=== PATIENT | female | born 1935 | race Caucasian/White ===

== ENCOUNTER 2017-06-08 17:51 | Emergency (ER) | payer MEDICAID ==
[~2017-06-08] VITALS: Ht 160 cm; Wt 99.8 kg
[~2017-06-08 17:51] MED LIST: ASPIRIN EC81 MG ORAL; LISINOPRIL5 MG ORAL; XARELTO15 MG ORAL
[2017-06-08 18:25] VITALS: BP 164/77
--- NOTE | 2017-06-08 18:25 | Emergency Room Report ---
History of Present Illness General Chief Complaint: Upper Respiratory Illness Source: Patient (Yao Andersen) Present Illness HPI 81 yo female patient presents to ER complaining of cough x2 weeks. Reports chest and back pain following cough. Reports chest and back is reproducible. Reports hx of HTN, was recently taken off medication, was told because "she didn 't need it anymore"; was taking Lisinopril 20mg. Reports still has medication. Denies vision changes, MANN, abdominal pain, fever. Denies hx of TX or heart surgery. Reports hx of DVT 2 years ago. Denies SOB, hemoptysis. Reports phlegm in cough. Denies calf or neck pain acutely. Reports taking Theraflu and Tylenol for relief of symptoms. Denies hx of asthma. (Yao Andersen) Allergies: Coded Allergies: NO KNOWN ALLERGIES (Unverified Allergy, Unknown, 03/27/15) Patient History Past Medical History: see triage record Last Menstrual Period: na Reviewed Nursing Documentation: PMH: Agreed, PSxH: Agreed (Yao Andersen) Nursing Documentation-PMH Past Medical History: No History, Except For Hx Hypertension: Yes Hx Diabetes: No Hx Cancer: No Hx Gastrointestinal Problems: No Hx Dizziness: Yes Hx Headaches: No (Yao Andersen) Review of Systems All Other Systems: negative except mentioned in HPI (Yao Andersen) Physical Exam Vital Signs Date Time Temp Pulse Resp B/P (MAP) Pulse Ox O2 Delivery O2 Flow Rate FiO2 18 18:00 97.8 73 20 194/75 94 Room Air 97.9 Sp02 EP Interpretation: reviewed, normal General Appearance: well appearing, no apparent distress, alert, GCS 15, non- toxic Head: normocephalic, atraumatic Eyes: bilateral eye normal inspection, bilateral eye PERRL ENT: hearing grossly normal, normal pharynx, no angioedema, normal voice, uvula midline, moist mucus membranes Neck: full range of motion, no bony tend Respiratory: lungs clear, normal breath sounds, no rhonchi, no respiratory distress, no accessory muscle use, no wheezing, speaking full sentences Cardiovascular #1: regular rate, rhythm, no edema Cardiovascular #2: 2+ radial (R), 2+ radial (L) Gastrointestinal: non tender, soft, no mass, non-distended, no guarding, no rebound Genitourinary: no CVA tenderness Musculoskeletal: back normal, digits/nails normal, gait/station normal, normal range of motion, non-tender, no calf tenderness, Luh's Sign negative Neurologic: alert, oriented x3, responsive, motor strength/tone normal, sensory intact Psychiatric: mood/affect normal Skin: no rash Lymphatic: no adenopathy (Yao Andersen) Medical Decision Making PA Attestation Dr. Guy is my supervising Physician whom patient management has been discussed with. (Yao Andersen) Diagnostic Impression: Primary Impression: Cough Additional Impressions: Blood glucose elevated Hypertension Qualified Codes: I10 - Essential (primary) hypertension ER Course Pt presents to ED c/o cough. DDX considered but are not limited to influenza, viral URI, pneumonia, strep throat, rhinitis, sinusitis, otitis media, TX. Low suspicion for PE per Well's criteria, no Cancer, no immobilization, no hemoptysis, no leg swelling. VITAL SIGNS are WNL, patient is afebrile. Blood pressure elevated at triage, repeat measurement. On PE, lungs clear to auscultation. Chest and back pain is reproducible with cough symptoms. Chest pain likely musculoskeletal in nature secondary to cough, will perform cardiac workup at this time to rule out underlying pathology. Patient instructed to take NSAIDs as needed for pain symptoms. Ordered labs, EKG ,and Chest X-ray. ER COURSE: EKG negative for ST elevation or arrhythmia. CXR negative for acute disease. Reviewed by Dr. Guy. Labs unremarkabkle, no elevation in WBC. Blood glucose elevated, followup with primary care provider for further diagnosis and treatment Troponin negative. Labs consistent with previous visit in ER. Contact primary care provider tomorrow regarding elevated blood pressure and need to begin taking Lisinopril again. Discuss elevated blood glucose. Pain likely musculoskeletal in nature. Take Tylenol for pain symptoms. Patient stable for discharge to home and outpatient followup. Patient smiling and laughing, talking without difficulty. Blood pressure reading decreased since arrival to ER. Followup with PCP. DISCHARGE: At this time pt is stable for d/c to home. Patient is resting comfortably, in no acute distress, nontoxic appearing, laughing and smiling, talking without difficulty. Patient able to ambulate independently without difficult.y. -Rx given for Tylenol/Acetaminophen -Rx given for Promethazine with codeine for cough. Use at night to help sleep. SE constipation. Patient to take medications as instructed Will provide with patient care instructions and any necessary prescriptions. Care plan and follow-up instructions provided. Patient instructed to follow-up with primary care provider in 3 - 5 days. Patient questions asked and answered. Patient reports understanding and agreement to treatment plan. ER precautions given. Patient instructed to return to ER immediately for any new or worsening of symptoms including but not limited to increasing SOB, persistent fever, chest pain, intractable vomiting. Labs Test 06/08/17 18:40 White Blood Count 5.2 K/UL (4.8-10.8) Red Blood Count 4.18 M/UL (4.20-5.40) Hemoglobin 12.6 G/DL (12.0-16.0) Hematocrit 38.5 % (37.0-47.0) Mean Corpuscular Volume 92 FL (80-99) Mean Corpuscular Hemoglobin 30.1 PG (27.0-31.0) Mean Corpuscular Hemoglobin Concent 32.7 G/DL (32.0-36.0) Red Cell Distribution Width 12.9 % (11.6-14.8) Platelet Count 238 K/UL (150-450) Mean Platelet Volume 6.6 FL (6.5-10.1) Neutrophils (%) (Auto) 46.6 % (45.0-75.0) Lymphocytes (%) (Auto) 41.8 % (20.0-45.0) Monocytes (%) (Auto) 10.2 % (1.0-10.0) Eosinophils (%) (Auto) 1.2 % (0.0-3.0) Basophils (%) (Auto) 0.2 % (0.0-2.0) Sodium Level 140 MMOL/L (136-145) Potassium Level 4.1 MMOL/L (3.5-5.1) Chloride Level 103 MMOL/L (98-107) Carbon Dioxide Level 27 MMOL/L (21-32) Anion Gap 10 mmol/L (5-15) Blood Urea Nitrogen 19 mg/dL (7-18) Creatinine 1.2 MG/DL (0.55-1.30) Estimat Glomerular Filtration Rate mL/min (>60) Glucose Level 126 MG/DL (74-106) Calcium Level 8.4 MG/DL (8.5-10.1) Total Bilirubin 0.3 MG/DL (0.2-1.0) Aspartate Amino Transf (AST/SGOT) 17 U/L (15-37) Alanine Aminotransferase (ALT/SGPT) 19 U/L (12-78) Alkaline Phosphatase 123 U/L (46-116) Total Creatine Kinase 29 U/L (26-308) Creatine Kinase MB 0.5 NG/ML (0.0-3.6) Creatine Kinase MB Relative Index 1.7 Troponin I 0.000 ng/mL (0.000-0.056) Total Protein 7.5 G/DL (6.4-8.2) Albumin 3.5 G/DL (3.4-5.0) Globulin 4.0 g/dL Albumin/Globulin Ratio 0.9 (1.0-2.7) (Yao Andersen P.A.) ER Course I was involved in this patient's evaluation and agree with the assessment and treatment plan. (Asa Guy M.D.) EKG Diagnostic Results Rate: normal Rhythm: NSR ST Segments: no acute changes ASA given to the pt in ED: No PA Scribe Text Ulices Andersen PA-C (Yao Andersen P.A.) Rhythm Strip Diag. Results EP Interpretation: yes Rate: 68 Rhythm: NSR, no PVC's, no ectopy PA Scribe Text Ulices Andersen PA-C (Yao Andersen P.A.) Chest X-Ray Diagnostic Results Chest X-Ray Diagnostic Results : Chest X-Ray Ordered: Yes # of Views/Limited/Complete: 1 View Indication: Chest Pain EP Interpretation: Yes PA Xray: Interpretation reviewed, by supervising MD, and agrees with findings. Interpretation: no consolidation, no effusion, no pneumothorax, no acute cardiopulmonary disease Impression: No acute disease PA Scribe Text Ulices Andersen PA-C (Yao Andersen P.A.) Chest X-Ray Diagnostic Results : Electronically Signed by: Scribe documentation reviewed by me and is accurate, Asa Guy MD. (Asa Guy M.D.) Last Vital Signs Date Time Temp Pulse Resp B/P (MAP) Pulse Ox O2 Delivery O2 Flow Rate FiO2 06/08/17 18:00 97.8 73 20 194/75 94 Room Air 97.9 (Yao Andersen) Last Vital Signs Date Time Temp Pulse Resp B/P (MAP) Pulse Ox O2 Delivery O2 Flow Rate FiO2 06/08/17 20:45 97.8 88 19 165/78 98 Room Air 97.8 (Asa Guy M.D.) Disposition: HOME, SELF-CARE Condition: Stable Scripts Codeine/Promethazine Hcl* (PROMETHAZINE-CODEINE SYRUP*) 118 Ml Syrup 5 ML ORAL Q6H Y for For Cough for 5 Days, #118 ML 0 Refills Prov: Yao Andersen 06/08/17 Acetaminophen* (TYLENOL EXTRA STRENGTH*) 500 Mg Tablet 500 MG ORAL Q8H Y for Prn Headache/Temp > 101, #30 TAB 0 Refills Prov: Yao Andersen 06/08/17 Patient Instructions: Hypertension, [id number], Managing Your High Blood Pressure, Upper Respiratory Infection, Adult Additional Instructions: Followup with primary care provider in 3 -5 days. Call physician tomorrow to discuss hypertension medication use. Discuss elevated blood glucose level in ER. Take cough medication at night to help sleep. May cause constipation, drink prune juice to help prevent constipation symptoms. Take medications as directed. Patient questions asked and answered. ER precautions given, patient instructed to return to ER immediately for any new or worsening of symptoms. Yao Andersen Jun 08, 2017 18:25 Asa Guy M.D. Jun 09, 2017 07:47
[2017-06-08 19:14] LABS: BASOPHILS % (AUTO) 0.2 % (0.0-2.0); EOSINOPHILS % (AUTO) 1.2 % (0.0-3.0); HEMATOCRIT 38.5 % (37.0-47.0); HEMOGLOBIN 12.6 G/DL (12.0-16.0); LYMPHOCYTES % (AUTO) 41.8 % (20.0-45.0); MEAN CORPUSCULAR VOLUME 92 FL (80-99); MONOCYTES % (AUTO) 10.2 % (1.0-10.0); NEUTROPHILS % (AUTO) 46.6 % (45.0-75.0); PLATELET COUNT 238 K/UL (150-450); RED BLOOD COUNT 4.18 M/UL (4.20-5.40); RED CELL DISTRIBUTION WIDTH 12.9 % (11.6-14.8); WHITE BLOOD COUNT 5.2 K/UL (4.8-10.8)
[2017-06-08 20:03] LABS: ANION GAP 10 mmol/L (5-15); BLOOD UREA NITROGEN 19 mg/dL (7-18); CALCIUM 8.4 MG/DL (8.5-10.1); CARBON DIOXIDE 27 MMOL/L (21-32); CHLORIDE 103 MMOL/L (98-107); CREATININE 1.2 MG/DL (0.55-1.30); POTASSIUM 4.1 MMOL/L (3.5-5.1); SODIUM 140 MMOL/L (136-145)
[2017-06-08 20:17] LABS: ALANINE AMINOTRANSFERASE 19 U/L (12-78); ALBUMIN 3.5 G/DL (3.4-5.0); ALBUMIN/GLOBULIN RATIO 0.9 (1.0-2.7); ALKALINE PHOSPHATASE 123 U/L (46-116); ASPARTATE AMINO TRANSFERASE 17 U/L (15-37); BILIRUBIN,TOTAL 0.3 MG/DL (0.2-1.0); CKMB 0.5 NG/ML (0.0-3.6); CREATINE KINASE 29 U/L (26-308)
[2017-06-08] MEDS ORDERED: PROMETHAZINE-C118 M1 ORAL (20:32)
[2017-06-08] MEDS ORDERED: TYLENOL EXTRA500 MG ORAL (20:32)
[2017-06-08 20:40] VITALS: BP 165/78
[2017-06-08 20:45] VITALS: BP 165/78
--- NOTE | 2017-06-09 11:12 | Diagnostic Imaging Report ---
Indication: Reason For Exam: PAIN Technique: One view of the chest Comparison: Findings: Lungs and pleural spaces are clear. Heart size is normal . The aorta is tortuous and ectatic. Degenerative changes of the left shoulder are noted. There is questionably a calcified granuloma in the medial right lung apex Impression: No acute process. Findings as noted This agrees with the preliminary interpretation provided by the emergency room physician
--- NOTE | 2017-06-11 20:16 | Cardiology Report ---
APPROVED REPORT EKG Measurement Heart [id number] Normal sinus rhythm Normal ECG
== END 2017-06-08 20:45 | disposition home or self-care (01) ==
LOC: EMR 18:50
DX: R05 Cough (principal); R73.9 Hyperglycemia, unspecified; I10 Essential (primary) hypertension
CPT/HCPCS: 36415; 71045; 80053; 82550; 82553; 84484; 85025; 93005; 99284

== ENCOUNTER 2020-01-28 14:00 | Emergency (ER) | payer MEDICAID ==
[~2020-01-28] VITALS: Ht 165.1 cm; Wt 59.9 kg
[~2020-01-28 14:00] MED LIST changes: +PROMETHAZINE-C118 M1 ORAL; +TYLENOL EXTRA500 MG ORAL
[2020-01-28 14:20] VITALS: BP 128/68
--- NOTE | 2020-01-28 14:43 | Emergency Room Report ---
History of Present Illness General Chief Complaint: Pain Source: Patient Present Illness HPI 84-year-old female presents to the emergency department complaining of 10 out of 10 severity pain localized to the right lateral ribs x 2 days. Pt. reports that she bumped into the corner of a dresser drawer that was left open . Pt. denies taking blood thinning medications. She reports a bruise on the skin. She reports difficulty sleeping due to pain/tenderness. Pt. denies CP/SOB. She denies open wounds or bleeding. She denies abdominal pain or tenderness. She denies hemoptysis. No other aggravating or relieving factors. Allergies: Coded Allergies: NO KNOWN ALLERGIES (Unverified Allergy, Unknown, 03/27/15) COVID-19 Screening Contact w/high risk pt: No Experienced COVID-19 symptoms?: No COVID-19 Testing performed PERFORMANCE INSTRUCTOR: No Patient History Past Medical History: see triage record Past Surgical History: none Pertinent Family History: none Now: No Reviewed Nursing Documentation: PMH: Agreed; PSxH: Agreed Nursing Documentation-PMH Past Medical History: No History, Except For Hx Hypertension: Yes Hx Diabetes: No Hx Cancer: No Hx Gastrointestinal Problems: No Hx Dizziness: Yes Hx Headaches: No Review of Systems All Other Systems: negative except mentioned in HPI Physical Exam Vital Signs Date Time Temp Pulse Resp B/P (MAP) Pulse Ox O2 Delivery O2 Flow Rate FiO2 01/28/20 14:06 97.0 82 17 128/68 (88) 98 Room Air Sp02 EP Interpretation: reviewed, normal General Appearance: no apparent distress, alert, GCS 15, non-toxic Head: normocephalic, atraumatic Eyes: bilateral eye normal inspection, bilateral eye PERRL ENT: hearing grossly normal, normal voice Neck: full range of motion Respiratory: lungs clear, normal breath sounds, no respiratory distress, no accessory muscle use, no wheezing, speaking full sentences, other - NO flail chest, mild bruise noted localized to the right lower lateral ribs. TTP in this area as well Cardiovascular #1: regular rate, rhythm Gastrointestinal: non tender, soft Genitourinary: normal inspection, no CVA tenderness Musculoskeletal: back normal, normal range of motion, gait/station normal, tender - TTP to the lateral aspect of th elower ribs on the right side. Neurologic: alert, motor strength/tone normal, oriented x3, sensory intact, responsive, speech normal Psychiatric: judgement/insight normal Skin: Ecchymosis/Bruising - lower right rib laterally. Lymphatic: no adenopathy Medical Decision Making DOUG Attestation Dr. Hua is my supervising Physician whom patient management has been discussed with. Diagnostic Impression: Primary Impression: Left rib fracture Qualified Codes: S22.32XA - Fracture of one rib, left side, initial encounter for closed fracture ER Course 84-year-old female presents to the emergency department complaining of 10 out of 10 severity pain localized to the right lateral ribs x 2 days. Pt. reports that she bumped into the corner of a dresser drawer that was left open . Pt. denies taking blood thinning medications. She reports a bruise on the skin. She reports difficulty sleeping due to pain/tenderness. Pt. denies CP/SOB. She denies open wounds or bleeding. She denies abdominal pain or tenderness. She denies h emoptysis. No other aggravating or relieving factors. Ddx considered but are not limited to Fracture, dislocation, contusion, Sprain/Strain/Spasm, Rib contusion, hematoma just to name a few. Vital signs: are WNL, pt. is afebrile H&PE are most consistent with musculoskeletal injury will perform imaging to r/o fractures/dislocations. ORDERS: - CT Chest without contrast - negative for fx, Dislocation, or significant soft tissue injury, per preliminary read in ED, and signed by DOUG Disla, my supervising physician has reviewed, and agrees with my interpretation. ED INTERVENTIONS: - Tylenol # 3 -Patient is given a spirometer and instructed on its use by instrument technologist. Pt. is given a copy of her imaging. DISCHARGE: At this time pt. is stable for d/c to home. Will provide printed patient care instructions, and any necessary prescriptions. Care plan and follow up instructions have been discussed with the patient prior to discharge. CT/MRI/US Diagnostic Results CT/MRI/US Diagnostic Results : Imaging Test Ordered: CT Chest without contrast Impression " fracture of the 11th rib ." --Per official radiology report- Please see report for specific details. Last Vital Signs Date Time Temp Pulse Resp B/P (MAP) Pulse Ox O2 Delivery O2 Flow Rate FiO2 01/28/20 14:20 97.0 17 128/68 98 Room Air 01/28/20 14:06 82 Status: improved Disposition: HOME, SELF-CARE Condition: Stable Scripts Ibuprofen* (MOTRIN*) 400 Mg Tablet 400 MG ORAL THREE TIMES A DAY, #30 TAB 0 Refills Prov: Steff Disla 01/28/20 Hydrocodone/Acetaminophen 5-325* (HYDROCODONE/ACETAMINOPHEN 5-325*) 1 Each Tablet 1 TAB ORAL Q6H PRN for For Pain, #20 TAB 0 Refills Prov: Steff Disla 01/28/20 Patient Instructions: Rib Contusion Additional Instructions: Take medications as directed. Follow up with a Primary Care Provider in 3-5 days, even if your symptoms have resolved. --Please review list of primary care clinics, if you do not already have a primary care provider Return sooner to ED if new symptoms occur, or current symptoms become worse. - Please note that this Emergency Department Report was dictated using txtrpattern duplicator technology software, occasionally this can lead to erroneous entry secondary to interpretation by the dictation equipment. Steff Disla Jan 28, 2020 14:43
[2020-01-28] MEDS ORDERED: Tylenol #3 tab (300mg/30mg) ORAL ONE (14:45)
--- NOTE | 2020-01-28 17:25 | Diagnostic Imaging Report ---
Clinical Indication: ] Pain after trauma Technique: Spiral acquisitions obtained through the chest. No IV contrast utilized, reason not stated. Multiplanar reconstructions generated. Total dose length product 240 mGycm. CTDIvol(s) 6 mGy. Dose reduction achieved using automated exposure control Comparison: none Findings: There is a fracture of the right 11th rib. This is nondisplaced. No other rib fractures are demonstrated. There is an old fracture deformity of the lateral left fifth rib. No other fractures. There are degenerative changes of the lumbar spine. No pneumothorax. Atelectatic changes are seen at the left lung base. The lungs and pleural spaces are otherwise clear. The heart is mildly enlarged. No pericardial effusion. The right pulmonary artery is dilated, measuring 3 cm in diameter, and the left pulmonary artery is ectatic. No mediastinal or hilar mass or adenopathy. No definite thyroid abnormality. No axillary or chest wall mass or adenopathy. The included upper abdominal anatomy demonstrates cholecystectomy clips and colonic diverticulosis. Impression: Positive for right 11th rib fracture. No evidence pneumothorax Minimal left basilar atelectasis. Otherwise unremarkable lungs Mild cardiomegaly Dilated right main pulmonary artery, indicating pulmonary arterial hypertension The CT scanner at [facility] is accredited by the [employer] and the scans are performed using protocols designed to limit radiation exposure to as low as reasonably achievable to attain images of sufficient resolution adequate for diagnostic evaluation.
[2020-01-28] MEDS ORDERED: IBUPROFEN400 MG ORAL (17:38)
[2020-01-28] MEDS ORDERED: HYDROCODON-ACE1 EA15 ORAL (17:38)
[2020-01-28 18:05] VITALS: BP 128/68
== END 2020-01-28 18:06 | disposition home or self-care (01) ==
LOC: EMR 15:00
DX: S22.31XA Fracture of one rib, right side, initial encounter for closed fracture (principal); S22.32XA Fracture of one rib, left side, initial encounter for closed fracture; W22.8XXA Striking against or struck by other objects, initial encounter; Y92.9 Unspecified place or not applicable; I10 Essential (primary) hypertension; S80.10XA Contusion of unspecified lower leg, initial encounter; J98.11 Atelectasis; I51.7 Cardiomegaly; K57.90 Diverticulosis of intestine, part unspecified, without perforation or abscess without bleeding; Z90.49 Acquired absence of other specified parts of digestive tract
CPT/HCPCS: 71250; Z7502; 99284